=== PATIENT | female | born 1990 | race Caucasian/White ===

== ENCOUNTER 2017-07-18 10:27 | Inpatient (IN) | payer BC, OTHER ==
[~2017-07-18] VITALS: Ht 160 cm; Wt 45.8 kg
[2017-07-18 19:46] LABS: *URINE HCG, QUAL NEGATIVE (NEGATIVE)
[2017-07-18 19:52] LABS: *AMPHETAMINE, URINE POSITIVE (NEGATIVE); *BARBITURATE, URINE NEGATIVE (NEGATIVE); *CANNABINOID, URINE NEGATIVE (NEGATIVE); *COCCAINE, URINE NEGATIVE (NEGATIVE); *OPIATE, URINE POSITIVE (NEGATIVE); *PHENCYCLIDINE SCREEN,URINE NEGATIVE (NEGATIVE)
--- NOTE | 2017-07-18 20:30 | NUR ---
ADMISSION NOTE: New admission is a 27 year old female on the [facility] on 07/18/2017 at 2130 for Opioid and Methamphetamine Dependence. Pre-assessment completed in intake. Patient provided UDS test. Height : 63 in, and weight by standing scale: 101 lb. VS upon admission: T: 98'4; BP: 119/73; HR: 88; RR: 18; O2 SAT: 99%. Patient c/o body aches "01/08". Patient reports NKA. Patient placed on Full Code, Regular Diet, and Fall Precautions. Patients denies Seizures Hx r/t withdrawal from substances. Patient is ambulatory with steady gait, A&O x 4. Patient is cooperative, friendly, and verbally appropriate. Patient reports PCP: Ezekiel Morrow MD. Patient admitted under the care Natanael Chan MD. Patient reports the following substances use: 1. "Heroin smoke 2.5 gram every day since 2007. Last used on 07/18/2017 at 2000". 2. "Methamphetamine smoke 0.5 gram every day. Last used on 07/18/2017 at 1500". COWS 7. Patient reported anxiety, agitation, nervousness, sweats, restlessness, and fatigue. Patient denies N/V, and diarrhea. Patient reports that she does not smoking tobacco. Patient reports treatment in "2013 for 45 days at "[facility]" , [place], [place]". Patient reports that longest period of sobriety was "three months: 07/2015 to 10/2015". Patient reports Past Medical History: "Anxiety, Depression, Substances Use, Migraine, and Low Back Pain". Patient brought Home Medications: Doxycycline Hyclate 100mg tab. . Upon initial assessment, patient's Respirations unlabored and even. Patient denies SOB and chest pain. Lungs Sounds are clear bilaterally. Bowel Sounds active in all x4 quadrants. Abdomen is soft and non-tender. PERRLA, brisk capillary refill, operations support specialist equal and strong. Skin is intact, warm and dry to touch. Patient oriented to his room, Nurse Call Light, and Serenity Floor. Encourage fluids as tolerated. Encourage to attend activities groups. All needs met. Safety measures on place. Call light within reach, bed in lowest position and locked, padded rails up bilaterally rails up bilaterally. Doctor Natanael Pisano MD aware for patient condition. Will continue to monitor closely. Addendum: 07/19/17 at 0227 by TREVOR ZAMUDIO RN Patient reports the following substances use: 1. "Heroin smoke 2.5 gram every day since 2007. Last used 0.5 gram on 07/18/2017 at 2000". 2. "Methamphetamine smoke 0.5 gram every day. Last used 0.2 gram on 07/18/2017 at 1500".
[2017-07-18] MEDS ORDERED: DOXY-182 PO (20:36)
[2017-07-18] MEDS ORDERED: BUPRENORPHINE HCL 2 MG TAB.SUBL SL PRN (20:45)
[2017-07-18] MEDS ORDERED: MAGNESIUM HYDROXIDE 30 ML LIQUID UDC PO PRN (20:45)
[2017-07-18] MEDS ORDERED: LOPERAMIDE HCL 2 MG CAPSULE PO PRN ×2 (20:45)
[2017-07-18] MEDS ORDERED: ACETAMINOPHEN 325 MG TABLET PO PRN (20:45)
[2017-07-18] MEDS ORDERED: LORAZEPAM 1 MG TABLET PO PRN (20:45)
[2017-07-18] MEDS ORDERED: DICYCLOMINE HCL 20 MG TABLET PO PRN (20:45)
[2017-07-18] MEDS ORDERED: ONDANSETRON 4 MG/2 ML VIAL IM PRN (20:45)
[2017-07-18] MEDS ORDERED: METHOCARBAMOL 750 MG TABLET PO PRN (20:45)
[2017-07-18] MEDS ORDERED: IBUPROFEN 600 MG TABLET PO PRN (20:45)
[2017-07-18] MEDS ORDERED: diphenhydrAMINE 50 MG CAPSULE PO PRN (20:45)
[2017-07-18] MEDS ORDERED: HYDROXYZINE PAMOATE 25 MG CAPSULE PO PRN (20:45)
[2017-07-18] MEDS ORDERED: ONDANSETRON ODT 4 MG TAB.RAPDIS SL PRN (20:45)
[2017-07-18] MEDS ORDERED: MAG HYDROX/AL HYDROX/SIMETH 30 ML LIQUID UDC PO PRN (20:45)
[2017-07-18] MEDS ORDERED: CLONIDINE HCL 0.1 MG TABLET PO PRN (20:45)
[2017-07-18] MEDS ORDERED: MIRALAX 17 GM POWD.PACK PO PRN (20:45)
--- NOTE | 2017-07-18 20:50 | NUR ---
PRE-ADMISSION NOTE: Patient assessed in intake office at 20:50 on 07/18/2017. Patient is ambulatory with steady gate, stable, AOx4, speech is clear. Patient states that she last used Heroin by smoke: "0.5 gram that was - on 07/18/2017at 20:00". Patient reports that she smoked Methamphetamine " 0,2 gram on 07/18/2017at 20:00". Patient's COWS 5. The patient reported the following symptoms: anxiety, agitation, nervousness, diaphoresis, restless legs, body aches, insomnia and fatigue. Patient denies SI/HI. Breathing is even and unlabored. Patient denies SOB and chest pain. Last BM was "07/18/2017at 10:00". VS: T: 98'4; BP: 119/73; HR: 88; RR: 18; O2 SAT: 99%. Patient c/o body aches "2/10". Patient reports NKA. Patient placed on Full Code, Regular Diet, and Fall Precautions. Patients denies Seizures Hx r/t withdrawal from substances. Patient instructed on unit protocol of vitals Q4H and COWS/CIWA assessments. Patient verbalized understanding and agreement. Patient also instructed on policy regarding destruction of any controlled substances/prescriptions brought to facility, and handling of all medications. Patient verbalized understanding and agreement. Will complete admission assessment when patient is brought up to unit.
[2017-07-18 21:30] VITALS: BP 119/73
[2017-07-18 23:17] LABS: BASOPHILS % (AUTO) 0.7 % (0.0-2.0); EOSINOPHILS # (AUTO) 0.1 K/uL (0.0-0.7); EOSINOPHILS % (AUTO) 2.8 % (0.0-7.0); HEMATOCRIT 39.3 % (37-47); HEMOGLOBIN 12.9 G/DL (12.0-16.0); LYMPHOCYTES % (AUTO) 42.4 % (20.5-51.5); MEAN CORPUSCULAR HEMOGLOBIN 30.7 UUG (27.0-31.0); MEAN CORPUSCULAR HGB CONC 33 g/dL (32.0-37.0); MEAN CORPUSCULAR VOLUME 93.2 FL (81.0-99.0); MONOCYTES # (AUTO) 0.3 K/UL (0.1-1.30); MONOCYTES % (AUTO) 7.2 % (0.0-11.0); NEUTROPHILS # (AUTO) 2.4 K/UL (1.8-8.9); NEUTROPHILS % (AUTO) 46.9 % (38.5-71.5); PLATELET COUNT (AUTO) 204 K/UL (150-450); RED BLOOD CELL COUNT(AUTO) 4.22 MIL/UL (4.2-5.4); WHITE BLOOD COUNT (AUTO) 4.8 K/UL (4.0-11.2)
[2017-07-18 23:25] LABS: ETHANOL < 3 MG/DL (0-0)
--- NOTE | 2017-07-18 23:29 | NUR ---
PRN VISTARIL 25 MG 1 CAP PO AND BENADRYL 50 MG 1 CAP PO ADMINISTRATION. Patient c/o increased anxiety, insomnia, and asked aid. PRN Vistaril 25 mg 1 cap PO and PRN Benadryl 50 mg 1 cap PO administrated for anxiety and insomnia with full glass of water as ordered. Patient tolerated well. All needs met. Safety measures on place. Call light within reach, bed in lowest position and locked, padded rails up bilaterally rails up bilaterally. Will continue to monitor closely.
[2017-07-18] MEDS ORDERED: diphenhydrAMINE 50 MG CAPSULE ONE (23:31)
[2017-07-18] MEDS ORDERED: HYDROXYZINE PAMOATE 25 MG CAPSULE ONE (23:31)
[2017-07-18 23:36] LABS: CARBON DIOXIDE 33 mmol/L (21-32); CHLORIDE 106 mmol/L (98-107); GLUCOSE 99 mg/dL (74-106); POTASSIUM 4.4 mmol/L (3.5-5.1)
[2017-07-18 23:37] LABS: ALANINE AMINOTRANSFERASE 15 U/L (14-59); ALKALINE PHOSPHATASE 45 U/L (50-136); ASPARTATE AMINOTRANSFERASE 19 U/L (15-37); BILIRUBIN,TOTAL 0.3 mg/dL (0.2-1.0); CREATININE 0.8 mg/dL (0.6-1.3); TOTAL PROTEIN, SERUM 7.7 g/dL (6.4-8.2); UREA NITROGEN, BLOOD 13 mg/dL (7-18)
[2017-07-19] VITALS: BP 121/78
--- NOTE | 2017-07-19 00:29 | NUR ---
RE-ASSESSMENT Patient is sleeping. Respirations even and unlabored. RR: 15. PRN Vistaril PO and Benadryl PO were effective. All needs met. Safety measures on place. Call light within reach, bed in lowest position and locked, padded rails up bilaterally rails up bilaterally. Will continue to monitor closely.
[2017-07-19 04:00] VITALS: BP 94/52
--- NOTE | 2017-07-19 07:06 | NUR ---
END OF SHIFT NOTE: Patient endorsed to day shift nurse in stable condition. Report given. Patient is a 27 year old female t admitted on the [facility] on 07/18/2017 for Opioid and Methamphetamine Dependence under the care Natanael Chan MD. Patient reports NKA. Patient placed on Full Code, Regular Diet, and Fall Precautions. Patients denies Seizures Hx r/t withdrawal from substances. Patient is cooperative, friendly, and verbally appropriate. Patient reports the following substances use: "Heroin smoke 2.5 gram every day since 2007. Last used on 07/18/2017 at 2000"; "Methamphetamine smoke 0.5 gram every day. Last used on 07/18/2017 at 1500". Patient reports that she "does not smoking tobacco". VS at 0400: T: 97.6; BP:94/52; HR: 92; RR: 14; O2 SAT:100%. Patient denies pain now: '0/10". COWS= 6 at 0400. During my shift patient presented with anxiety, agitation, nervousness, sweats, restlessness, and fatigue. Patient denies N/V, and diarrhea. Patient denies current SI/HI. Respirations unlabored and even. Patient denies SOB and chest pain. Skin is intact, warm and dry to touch. Encourage fluids as tolerated. Encourage to attend activities groups. PRN Vistaril PO and Benadryl PO were effective. Patient slept 5 hours, intake 750 ml, voided x2. All needs met. Safety measures on place. Call light within reach, bed in lowest position and locked, padded rails up bilaterally.
--- NOTE | 2017-07-19 07:42 | NUR ---
START OF SHIFT NOTE Received patient this morning Aox4. patient presents with flat affect and reports hot/cold flashes and shakiness. She states she feels better than she has though. Patient on PRNs only per night nurse. PRN Benadryl and Vistaril given per night nurse. She slept 5 hours. COWS 6 per night nurse. Vital signs stable. Encouraged pt to attend groups and activities and increase fluid intake. Encouraged pt to notify RN if symptoms of withdrawal worsen. Will monitor closely.
[2017-07-19 08:00] VITALS: BP 110/71
[2017-07-19] MEDS ORDERED: TUBERCULIN,PURIF.PROT.DERIV. 5 TU/0.1 ML TEST ID ONE (09:00)
[2017-07-19] MEDS ORDERED: MULTIVITAMINS,THERAPEUTIC TABLET PO SCH (09:00)
[2017-07-19] MEDS ORDERED: BUPRENORPHINE HCL 2 MG TAB.SUBL SL SCH (09:00)
[2017-07-19 12:00] VITALS: BP 97/64
--- NOTE | 2017-07-19 14:42 | NUR ---
AMA NOTE PATIENT LEFT AMA. PT REFUSED TO COMPLY WITH TX PLAN. PT EDUCATED ABOUT THE RISKS AND CONSEQUENCES OF LEAVING AMA. PT VERBALIZED UNDERSTANDING BUT WAS ADAMANT ABOUT LEAVING. MULTIPLE STAFF MEMEBERS INCLUDING DOCTORS, PATIENT ADVOCATES, AND NURSES ATTEMPTED TO REASON WITH PT WITH NO SUCCESS. VITAL SIGNS WNL, SKIN INTACT, PT DENIES ANY S/I OR H/I. PSYCHIATRIST AND MD WERE NOTIFIED AND ARE NOW AWARE. PT WAS GIVEN A LIST OF COMMUNITY RESOURCES, AMA FORMS EXPLAINED AND SIGNED. ALL BELONGINGS RETURNED BACK TO PT AND PATIENT SIGNED IN ACCEPTANCE. PT LEFT FACILITY AMA ON 07/19/17 AT 1420.
[2017-07-19] MEDS ORDERED: GABAPENTIN 300 MG CAPSULE PO SCH ×2 (15:00→21:00)
[2017-07-20 05:06] LABS: HEPATITIS B SURFACE AG Negative (Negative)
[2017-07-20] MEDS ORDERED: BUPRENORPHINE HCL 2 MG TAB.SUBL SL SCH ×2 (09:00→15:00)
[2017-07-21] MEDS ORDERED: BUPRENORPHINE HCL 2 MG TAB.SUBL SL SCH (09:00)
[2017-07-22] MEDS ORDERED: BUPRENORPHINE HCL 2 MG TAB.SUBL SL SCH (09:00)
== END 2017-07-19 14:20 | disposition left against medical advice (07) | DRG 894 ==
LOC: SRC 19:27
PROVIDERS: ADMIT Internal Medicine; ATTEND Internal Medicine
PROC: HZ2ZZZZ Detoxification Services for Substance Abuse Treatment (ICD-10-PCS; principal; 2017-07-18)
DX: F11.23 Opioid dependence with withdrawal (principal); F32.9 Major depressive disorder, single episode, unspecified; F15.220 Other stimulant dependence with intoxication, uncomplicated; F41.9 Anxiety disorder, unspecified; G43.909 Migraine, unspecified, not intractable, without status migrainosus; L70.9 Acne, unspecified; Z79.899 Other long term (current) drug therapy
CPT/HCPCS: 36415; 80307; 80324; 80361; 83735; 84703; 85025; 86580; 86592; 86705; 86803; 87340; 87806; A4663; G0480; Q0163